=== PATIENT | female | born 1955 | race Caucasian/White ===

== ENCOUNTER 2019-12-11 15:03 | Outpatient (CLI) | payer MEDICARE, OTHER ==
--- NOTE | 2019-12-11 16:01 | CT ---
CT CHEST WITHOUT CONTRAST CLINICAL INDICATION: Pulmonary nodule less than 6 mm. COMPARISON: 02/20/2018 FINDINGS: Aorta: Limited evaluation of vascular structures due to the lack of intravenous contrast. Minimal vas cular calcifications are seen in the thoracic aorta. Thoracic aorta is normal in caliber. Lungs: Again noted is an approximately 6 mm pulmonary nodule in the right middle lobe. A few tiny les s than 5 mm pleural-based nodular densities are seen along the minor fissure in the right middle lobe which are also unchanged compared to prior exam. No new discrete noncalcified pulmonary nodule i s seen in the lungs bilaterally. Calcified granuloma is present in the right upper lobe medially. No pleural effusion is seen. Mediastinum: Limited evaluation due to lack of intravenous contrast, no definite enlarged lymph nodes are seen. Thyroid gland: Again noted is a subcentimeter hypodense nodule right lobe of thyroid gland with assoc iated calcification. This is unchanged compared to prior exam. Osseous structures: Degenerative changes are seen in the visualized cervical spine as well as seen wi thin the thoracic spine. Chest wall: No abnormality visualized. Upper abdomen: Again noted are multiple gallbladder calculi. There is an irregular hypodense area seen within the medial aspect lateral segment left hepatic lobe which appears to represent a branching tubular appearing structure. Attenuation coefficients are suggestive of fluid. This could represent an irregular hepatic cyst, but this was not definitely seen on the prior exam. Colonic diverticulosis is present. IMPRESSION: 1. Irregular hypodense structure in the lateral segment left hepatic lobe measuring 1.6 cm. This may represent an irregular cyst, this has a branching configuration and the exact etiology is uncertain. CT scan abdomen with IV contrast is recommended for further evaluation. 2. Stable right middle lobe pulmonary nodule. Follow-up CT thorax in one year is recommended. 3. Cholelithiasis.
== END 2019-12-11 15:04 | disposition home or self-care (01) ==
LOC: NAV CT 15:03
PROVIDERS: ATTEND Internal Medicine
DX: R91.1 Solitary pulmonary nodule (principal); K80.20 Calculus of gallbladder without cholecystitis without obstruction
CPT/HCPCS: 71250

== ENCOUNTER 2021-12-21 09:14 | Outpatient (CLI) | payer MEDICARE, OTHER ==
[~2021-12-21 09:14] MED LIST: Iopamidol 370 76% 100 ML VIAL ONE
== END 2021-12-21 09:15 | disposition home or self-care (01) ==
LOC: NAV CT 09:14
PROVIDERS: ATTEND Internal Medicine
DX: R91.1 Solitary pulmonary nodule (principal); N95.0 Postmenopausal bleeding; K76.9 Liver disease, unspecified; K76.0 Fatty (change of) liver, not elsewhere classified
CPT/HCPCS: 36415; 71260; 74177; 82565